=== PATIENT | female | born 1975 | race Caucasian/White ===

== ENCOUNTER 2016-10-08 23:49 | Emergency (ER) | payer OTHER ==
[~2016-10-08] VITALS: Ht 170.2 cm; Wt 138.3 kg
[~2016-10-08 23:49] MED LIST: AMOXICILLIN500 MG PO; AUGMENTIN 875 M1 TAB PO; AUGMENTIN 875-1 EACH PO; ENBREL50 MG/1 M1 SC; FEOSOL45 M1 PO; FOLIC ACID1 M1 PO; HYDROXYCHLOROQ200 M2 PO; HYDROXYZINE HCL25 M2 PO; MEDROL DOSEPAK1 PAC PO; METHOTREXATE2.5 M2 PO; NOVAPLUS V0.09 MG/Ac INH; PERCOCET 325 MG1 TA2 PO; PREDNISONE10 M2 PO; VITAFOL PO; VITAMIN D31000 UNI2 PO
[2016-10-09 00:55] VITALS: BP 138/76
[2016-10-09] MEDS ORDERED: PREDNISONE20 M1 PO (00:58)
[2016-10-09] MEDS ORDERED: NEXIUM40 M1 PO (00:58)
--- NOTE | 2016-10-09 01:21 | ED INFLUENZA/URI COMPLAINT ---
History of Present Illness General Chief Complaint: General Adult Stated Complaint: DIFF BREATHING C/O POST NASAL DRIP X'S COMP Source: patient Exam Limitations: no limitations Vital Signs & Intake/Output Vital Signs & Intake/Output Vital Signs Date Time Temp Pulse Resp B/P B/P Pulse O2 O2 Flow FiO2 Mean Ox Delivery Rate 10/09 0058 98 Room Air 10/09 0055 97.2 105 18 138/76 97 Room Air Allergies Coded Allergies: moxifloxacin (From Avelox) (UNKNOWN RXN 10/19/15) aspartame (From Nutrasweet Aspartame) (MIGRAINES 10/19/15) erythromycin base (STOMACH CRAMPS 10/19/15) itraconazole (From Sporanox) (MIGRAINE 10/19/15) meperidine (PARANOIA 10/19/15) Reconcile Medications Amoxicillin/Potassium Clav (Augmentin 875-125 Tablet) 1 EACH TABLET 1 TAB PO BID INFECTION Cholecalciferol (Vitamin D3) 1,000 UNIT TABLET 1 TAB PO DAILY SUPPLEMENT ( Reported) Esomeprazole (Nexium) 40 MG CAPSULE.DR 1 CAP PO DAILY GERD (Reported) Etanercept (Enbrel) 50 MG/1 ML PEN.INJCTR 1 INJ SC QW RA (Reported) Fe Fumarate/Nelson/E/FA/Multivit (Vitafol Caplet) 1 EACH TABLET 1 TAB PO DAILY SUPPLEMENT (Reported) Folic Acid 1 MG TABLET 1 TAB PO DAILY SUPPLEMENT (Reported) Hydroxychloroquine Sulfate 200 MG TABLET 1 TAB PO BID RA (Reported) Hydroxyzine HCl 25 MG TABLET 1-2 TAB PO Q6P PRN anxiety Iron,Carbonyl (Feosol) 45 MG TABLET 1 TAB PO DAILY SUPPLEMENT (Reported) Methotrexate 2.5 MG TABLET 8 TAB PO QW RA (Reported) Prednisone 10 MG TABLET 1 TAB PO DAILY RA (Reported) Prednisone 20 MG TABLET 1 TAB PO DAILY ASTHMATIC BRONCHITIS (Reported) Triage Note: PT TO ER C/C ONGOING SOB AND COUGH X 1 WEEKS; SEEN BY PCP FOR SAME, GIVEN RX FOR INHALER, AMOXICILLIN AND INCREASE IN DAILY PREDNISONE WITH SOME RELIEF OF SYMPTOMS. STATES SOB AND POST NASAL DRIP PERSISTS. PRODUCTIVE COUGH WITH YELLOW SPUTUM. DENIES CP Triage Nurses Notes Reviewed? yes : No Patient currently breastfeeds: No HPI: Patient presents for evaluation of shortness of breath and cough that began gradually 2 weeks ago. Patient was seen in a walk-in clinic 2 weeks ago and prescribed amoxicillin and an inhaler. She was then seen by her primary care physician about one week ago, chest x-ray obtained, and patient diagnosed with asthmatic bronchitis. Patient states that her symptoms had more or less resolved but then returned on Friday during the camping trip. Patient denies any fever or chest pain. She has been using the inhaler 4 times a day without much improvement. Patient typically takes a daily dose of prednisone 5 mg with this was increased due to this acute illness. She does have a scant amount of yellow phlegm with cough. She has also tried [id number]-alm-[id number] nonsedating antihistamines for the possibility of allergy symptoms without improvement ( patient has no known history of seasonal allergies). Past History Travel History Traveled to [place] past 21 day No Medical History Any Pertinent Medical History? see below for history Neurological: NONE EENT: migraine Cardiovascular: NONE Respiratory: NONE, obstructive sleep apnea Gastrointestinal: GERD, Eugene'S ESOPHAGUS Hepatic: NONE Renal: NONE Musculoskeletal: rheumatoid arthritis Psychiatric: anxiety, panic attack Endocrine: NONE Blood Disorders: NONE Cancer(s): NONE Tetanus Vaccine: 10/19/15 Surgical History Surgical History: none Psychosocial History Who do you live with Family Services at Home None What is your primary language Norwegian Tobacco Use: Current Daily Use Daily Tobacco Use Amount/Type: => 5 Cigarettes daily Family History Hx Contributory? No Review of Systems Review of Systems Constitutional: Reports: no symptoms. EENTM: Reports: no symptoms. Respiratory: Reports: see HPI. Cardiovascular: Reports: no symptoms. GI: Reports: no symptoms. Genitourinary: Reports: no symptoms. Musculoskeletal: Reports: no symptoms. Skin: Reports: no symptoms. Neurological/Psychological: Reports: no symptoms. Hematologic/Endocrine: Reports: no symptoms. Immunologic/Allergic: Reports: no symptoms. All Other Systems: Reviewed and Negative Physical Exam Physical Exam Ears, Nose, Throat: SEE BELOW Comments: Gen.: Well-nourished, well-developed, no acute respiratory distress. Head: Normocephalic, atraumatic. Eyes: Normal inspection bilaterally Ears: Normal inspection bilaterally Nose: Normal inspection Throat/mouth : Moist mucosa Neck: Supple, full range of motion, no goiter Heart: Regular rate and rhythm, no murmurs rubs or gallops Lungs: Clear to auscultation bilaterally with normal air entry Chest: Nontender Back: Normal range of motion Abdomen: Soft, nontender, nondistended, normal bowel sounds Extremities: Normal range of motion grossly, equal radial pulses, no cyanosis clubbing or edema Neurologic: Cranial nerves grossly intact, speech is clear Skin: warm and dry Psychiatric: Calm, cooperative, no apparent delusions or hallucinations Core Measures Severe Sepsis Present: No Septic Shock Present: No Progress Differential Diagnosis: PNEUMONIA, ASTHMATIC BRONCHITIS, SEASONAL ALLERGY SYMPTOMS, ANXIETY Plan of Care: Current Medications Sig/Kolby Start time Last Medication Dose Stop Time Status Admin Albuterol Sulfate 3 ML ONCE ONE 10/09 129 UNVr (Proventil) 10/09 130 Ipratropium Slinger 2.5 ML ONCE ONE 10/09 129 UNVr (Atrovent) 10/09 130 Methylprednisolone 125 MG ONCE ONE 10/09 129 UNVr (Solu Medrol) 10/09 130 Initial ED EKG: none Comments: I considered treating this patient with a DuoNeb along with Solu-Medrol. However given the good bilateral air entry lack of wheezing I did not feel this patient would derive much benefit. She might feel worse given the side effects. I will give her a dose of Solu-Medrol and asked that she increase her dose of prednisone over the next 2 days in order to settle down any seasonal allergy symptoms she is suffering an for more aggressive management of possible proximal spastic lung disease. I will have her follow up with her primary care physician for reevaluation and subsequent weaning of the prednisone back to her usual doses. Departure Departure Disposition: HOME OR SELF CARE Condition: Stable Clinical Impression Primary Impression: Asthmatic bronchitis Qualifiers: Asthma severity: mild intermittent Asthma complication type: uncomplicated Qualified Code: J45.20 - Mild intermittent asthma, uncomplicated Secondary Impressions: Seasonal allergies Qualifiers: Chronicity: chronic Allergic rhinitis trigger: unspecified Qualified Code: J30.2 - Other seasonal allergic rhinitis Referrals: GEORGE DOBBS,LYNN Molina (PCP/Family) Additional Instructions: Benadryl 50 mg every 6 hours as needed for seasonal allergy symptoms. Continue the Sudafed decongestant. Begin taking the Combivent inhaler every 6 hours and use the pro-air inhaler in between if necessary. Prednisone 60 mg beginning tomorrow each day for 2 days then return to your 20 mg daily dose. Follow-up with your primary care physician in 3 days for reevaluation. Return if any concerns or sudden worsening. Please try to quit smoking. Thank you for choosing the [facility] for your care. It was a pleasure to serve you today. Fly Sahu M.D. [facility] Departure Forms: Customer Survey General Discharge Information Prescriptions: Current Visit Scripts Ipratropium/Albuterol Sulfate (Combivent Respimat Inhal Junior) 1 INH INH Q6 PRN trouble breathing #1 INHAL Prednisone (Deltasone) 3 TAB PO DAILY #6 TAB BEGIN TOMORROW
[2016-10-09] MEDS ORDERED: DELTASONE20 MG PO (01:40)
[2016-10-09] MEDS ORDERED: COMBIVENT RESPIM4 GM INH (01:40)
== END 2016-10-09 02:13 ==
LOC: ERH 23:49
DX: J45.909 Unspecified asthma, uncomplicated (principal); J30.2 Other seasonal allergic rhinitis; Z72.0 Tobacco use
CPT/HCPCS: 1263; 96372; J2930

== ENCOUNTER 2016-10-12 15:12 | Emergency (ER) | payer OTHER ==
[~2016-10-12] VITALS: Ht 170.2 cm; Wt 138.3 kg
[~2016-10-12 15:12] MED LIST changes: +COMBIVENT RESPIM4 GM INH; +DELTASONE20 MG PO; +NEXIUM40 M1 PO; +PREDNISONE20 M1 PO
--- NOTE | 2016-10-12 16:11 | ED UPPER/LOWER EXTREMITY COMPL ---
History of Present Illness General Chief Complaint: Lower Extremity Problems Stated Complaint: SENT BY FOR ULTRASOUND FOR BOTH LEGS Source: patient Exam Limitations: no limitations Vital Signs & Intake/Output Vital Signs & Intake/Output Vital Signs Date Time Temp Pulse Resp B/P B/P Pulse O2 O2 Flow FiO2 Mean Ox Delivery Rate 10/12 1829 98.2 80 16 135/74 95 Room Air 10/12 1702 97 10/12 1628 Room Air 10/12 1517 96.9 107 15 158/99 95 Room Air Room Air ED Intake and Output 10/13 0000 10/12 1200 Intake Total Output Total Balance Patient 305 lb Weight Weight Reported by Patient Measurement Method Allergies Coded Allergies: etanercept (From ENBREL) (RASH 10/12/16) moxifloxacin (From Avelox) (UNKNOWN RXN 10/12/16) nystatin (RASHES 10/12/16) aspartame (From Nutrasweet Aspartame) (MIGRAINES 10/12/16) erythromycin base (STOMACH CRAMPS 10/12/16) itraconazole (From Sporanox) (MIGRAINE 10/12/16) meperidine (PARANOIA 10/12/16) Reconcile Medications Albuterol Sulfate (Proair Hfa) 90 MCG HFA.AER.AD 2 PUF INH AD PRN RESPIRATORY (Reported) Amoxicillin (Unknown Strength) TABLET (Unknown Dose) UNKNOWN (Reported) Cholecalciferol (Vitamin D3) (Vitamin D) 2,000 UNIT TABLET 1 TAB PO DAILY SUPPLEMENT (Reported) Cyclosporine (Restasis) 0.05 % DROPERETTE 1 GTT OPH BID DRY EYES- BIOTIN ( Reported) Esomeprazole (Nexium) 40 MG CAPSULE. 1 CAP PO DAILY GERD (Reported) Folic Acid 1 MG TABLET 1 TAB PO DAILY SUPPLEMENT (Reported) Furosemide (Lasix) 20 MG TABLET 1 TAB PO DAILY PRN LEG EDEMA Hydroxychloroquine Sulfate 200 MG TABLET 1 TAB PO BID RA (Reported) Hydroxyzine HCl 25 MG TABLET 1-2 TAB PO Q6P PRN anxiety Ipratropium/Albuterol Sulfate (Combivent Respimat Inhal [place]) 20 MCG-100 MCG/ ACTUATION MIST.INHAL 1 INH INH Q6 PRN trouble breathing Iron,Carbonyl (Feosol) 45 MG TABLET 1 TAB PO DAILY SUPPLEMENT (Reported) Prednisone 20 MG TABLET 1 TAB PO DAILY ASTHMATIC BRONCHITIS (Reported) Sodium Fluoride (Denta 5000 Plus) 1.1 % CREAM..G. 1 BRIA TOP BID TEETH ( Reported) Vitamin E Mixed (Vitamin E) (Unknown Strength) TABLET (Unknown Dose) PO DAILY SUPPLEMENT (Reported) Triage Note: PT SENT TO ED BY DR. VAZQUEZ FOR BILATERAL LOWER EXT EDEMA FOR THE LAST COUPLE OF DAYS. SENT FOR BILAT ULTRASOUND TO R/O DVT. +SOB, -CP. RECENTLY ON PREDNISONE FOR URI AND IS UNSURE IF IT'S RELATED. Triage Nurses Notes Reviewed? yes Onset: Gradual Duration: constant Timing: recent history Severity: moderate Severity Numbers: 5 : No Patient currently breastfeeds: No HPI: Patient is a 41-year-old with a past medical history of rheumatoid arthritis Awan's esophagus and hiatal hernia who presented to the emergency room 3 days ago for concerns of reactive airway disease and bronchitis were patient has been administered prednisone where she presents to the emergency room with a gradual onset of a 2 day history of bilateral lower extremity swelling, patient has associated symptoms of persisting productive cough and shortness of breath. Patient does state that she's had a chronic history of shortness of breath and which she is in every day smoker. Patient also states that she has been chronically on prednisone however due to recent ER evaluation her prednisone has significantly increased. Patient denies any fever chills chest pain and jaw pain nausea vomiting hemoptysis recent travel or recent surgery history of DVT or PE (EDOUARD COLEY) Past History Travel History Traveled to [place] past 21 day No Medical History Any Pertinent Medical History? see below for history Neurological: NONE EENT: migraine Cardiovascular: NONE Respiratory: NONE, obstructive sleep apnea Gastrointestinal: GERD, Awan'S ESOPHAGUS Hepatic: NONE Renal: NONE Musculoskeletal: rheumatoid arthritis Psychiatric: anxiety, panic attack Endocrine: NONE Blood Disorders: NONE Cancer(s): NONE Tetanus Vaccine: 10/19/15 Surgical History Surgical History: none Psychosocial History Who do you live with Family Services at Home None What is your primary language Yemeni Tobacco Use: Current Daily Use Daily Tobacco Use Amount/Type: => 5 Cigarettes daily ETOH Use: denies use Illicit Drug Use: denies illicit drug use Family History Hx Contributory? No (EDOUARD COLEY) Review of Systems Review of Systems Constitutional: Reports: no symptoms. EENTM: Reports: no symptoms. Respiratory: Reports: see HPI, cough, short of breath. Cardiovascular: Reports: see HPI, peripheral edema. Denies: chest pain. Gastrointestinal/Abdominal: Reports: no symptoms. Genitourinary: Reports: no symptoms. Musculoskeletal: Reports: no symptoms. Skin: Reports: no symptoms. Neurological/Psychological: Reports: no symptoms. Hematologic/Endocrine: Reports: no symptoms. Immunological: Reports: no symptoms. All Other Systems: Reviewed and Negative (EDOUARD COLEY) Physical Exam Physical Exam General Appearance: no apparent distress, obese Skin: intact, normal color, warm/dry Comments: HEENT: Normal EENT exam Neck: Supple, no lymphadenopathy, normal range of motion without pain or tenderness Back: Nontender, no CVA tenderness. Full range of motion Cardiovascular: Regular rate and rhythms no murmurs rubs or gallops, normal JVP Respiratory: Chest nontender. No respiratory distress.breath sounds clear to auscultation bilaterally Abdomen: Soft, nontender nondistended, no appreciable organomegaly. Normal bowel sounds. No ascites Extremity: +1 bilateral lower extremity pitting edema, no calf tenderness to palpation, normal and equal pulses. Neuro: Alert oriented x3, motor sensory normal, Skin: No appreciable rash on exposed skin, skin is warm and dry. Psych: Mood and affect is normal, memory and judgment is normal. (EDOUARD COLEY) Progress Differential Diagnosis: arterial insufficiency, cellulitis, CHF, compartment syndrome, contusion, dislocation, DVT, fracture, gout, septic arthritis, sprain, tendon injury Plan of Care: Orders Procedure Date/time Status HUMAN BETA HCG SCREEN 10/12 1699 Complete URINALYSIS 10/12 164 Complete TROPONIN LEVEL 10/12 164 Complete COMPREHENSIVE METABOLIC PANEL 10/12 164 Complete CBC WITHOUT DIFFERENTIAL 10/12 164 Complete B-TYPE NATRIURETIC PEP (BNP) 10/12 164 Complete Laboratory Tests 10/12/16 1705: Urine Color YEL, Urine Clarity CLEAR, Urine pH 6.0, Ur Specific [place] 1.010, Urine Protein NEG, Urine Ketones NEG, Urine Nitrite NEG, Urine Bilirubin NEG, Urine Urobilinogen 0.2, Ur Leukocyte Esterase NEG, Ur Microscopic SEDIMENT EXAMINED, Urine RBC RARE, Ur Epithelial Cells RARE, Urine Hemoglobin TRACE- INTACT, Urine Glucose NEG 10/12/16 1700: Anion Gap 10, Estimated GFR > 60, BUN/Creatinine Ratio 18.3, Glucose 85, Calcium 9.5, Total Bilirubin 0.4, AST 20, ALT 47, Alkaline Phosphatase 64, Troponin I < 0.01, Ndz-[id number]-Zwczeobpkmx Pept 82.6, Total Protein 6.7, Albumin 4.1, Globulin 2.6, Albumin/Globulin Ratio 1.6, Total Beta HCG NEGATIVE, CBC w Diff NO MAN DIFF REQ, RBC 4.77, MCV 90.9, MCH 30.0, RDW 14.8 H, MPV 6.6 L, Gran % 80.3 H, Lymphocytes % 13.3 L, Monocytes % 5.9, Eosinophils % 0.2, Basophils % 0.3, Absolute Granulocytes 9.7 H, Absolute Lymphocytes 1.6, Absolute Monocytes 0.7 H, Absolute Eosinophils 0, Absolute Basophils 0, PUBS MCHC 33.0 10/12/16 1646: Total Beta HCG Cancelled Patient currently is resting comfortable at bedside distress no respiratory distress oxygen saturation 98% lungs auscultation. Patient had an unremarkable chest x-ray blood work and ultrasounD. NO CONCERN OF CHF or DVT. There is no suspicion of pulmonary embolism No findings of nephrotic syndrome Patient was strongly advised to discontinue smoking and was given a short course of diuretic for concerns of dependent edema There is also suspicion of patient swelling due to long standing steroid use and patient recently was administered higher dose of steroids due to reactive airway disease from previous emergency room visit. (CAMACHO CASTELLANOS,EDOUARD) Diagnostic Imaging: Viewed by Me: Radiology Read, Ultrasound. CXR Impression: no acute abnormality Comments: PATIENT: JOÃO WIGGINS PRESENT AGE: 41 PATIENT ACCOUNT NO: [id number] : 75 LOCATION: [facility] ORDERING PHYSICIAN: BEVERLY ZHENG MD SERVICE DATE: 10/12/16 EXAM TYPE: US - US-EXT BILAT VENOUS DOPPLER EXAMINATION: US TRIPLEX OF LOWER EXTREMITIES, BILATERAL CLINICAL INFORMATION: Lower extremity edema COMPARISON: None TECHNIQUE: Color-flow triplex imaging with spectral analysis and compression Doppler were performed on the lower extremities. FINDINGS: Respiratory variation, normal compression and augmented flow are noted throughout the lower extremities. The visualized common femoral vein, superficial femoral vein, profunda femoral vein, popliteal vein and midcalf peroneal and posterior tibial venous segments show no evidence of deep venous thrombosis. There is no Downs's cyst. IMPRESSION: Normal triplex scan without evidence of deep venous thrombosis involving the lower extremities. DICTATED BY: BERNADINE SIMON MD DATE/TIME DICTATED:10/12/161747 RN HYPERBARIC:WILFRIDO PATIENT: JOÃO WIGGINS PRESENT AGE: 41 PATIENT ACCOUNT NO: [id number] : 75 LOCATION: [facility] ORDERING PHYSICIAN: EDOUARD CASTELLANOS SERVICE DATE: 10/12/16 EXAM TYPE: RAD - XRY-CHEST XRAY, PA AND LATERAL EXAMINATION: XR CHEST CLINICAL INFORMATION: Shortness of COMPARISON: 11/02/2015 chest x-ray TECHNIQUE: 2 views of the chest were obtained. FINDINGS: Normal cardiomediastinal silhouette. The lungs are clear. The pulmonary vascularity is within normal limits. The costophrenic angles are sharp. No pleural effusions or pneumothorax. The visualized bony thorax is unremarkable. IMPRESSION: No acute cardiopulmonary findings. DICTATED BY: BERNADINE SIMON MD DATE/TIME DICTATED:10/12/161743 RN HYPERBARIC:WILFRIDO DATE/TIME TRANSCRIBED:10/12/16 (CAMACHO CASTELLANOS,EDOUARD) Departure Departure Disposition: HOME OR SELF CARE Condition: Stable Clinical Impression Primary Impression: Leg edema Referrals: GEORGE DOBBS,LYNN Molina (PCP/Family) Additional Instructions: As discussed continue home medications as directed. Please discontinue smoking. Begin the prescription of Lasix as directed for swelling. Prescription is waiting at [facility]. If symptoms worsen return to emergency room. If no better on Friday follow up with your primary care doctor Departure Forms: Customer Survey General Discharge Information Prescriptions: Current Visit Scripts Furosemide (Lasix) 1 TAB PO DAILY PRN LEG EDEMA #4 TAB (EDOUARD COLEY) PA/BOTTLE CASER Co-Sign Statement Statement: ED Attending supervision documentation- [] I saw and evaluated the patient. I have also reviewed all the pertinent lab results and diagnostic results. I agree with the findings and the plan of care as documented in the PA's/BOTTLE CASER's documentation. [X] I have reviewed the ED Record and agree with the PA's/BOTTLE CASER's documentation. [] Additions or exceptions (if any) to the PAs/BOTTLE CASER's note and plan are summarized below: [] (NORM DOBBS,BEVERLY Bernard)
[2016-10-12] MEDS ORDERED: VITAMIN D2000 UNI1 PO (17:06)
[2016-10-12] MEDS ORDERED: AMOXICILLIN875 M1 (17:14)
[2016-10-12] MEDS ORDERED: DENTA 5000 PLUS51 GM TOP (17:15)
[2016-10-12] MEDS ORDERED: RESTASIS1 EACH OPH (17:16)
[2016-10-12] MEDS ORDERED: PROAIR HFA8.5 GM INH (17:16)
[2016-10-12 17:17] LABS: ABSOLUTE BASOPHIL COUNT 0 /CUMM (0.0-0.2); ABSOLUTE EOSINOPHIL COUNT 0 /CUMM (0.0-0.7); ABSOLUTE GRANULOCYTE CT 9.7 /CUMM (1.4-6.5); ABSOLUTE LYMPH COUNT 1.6 /CUMM (1.2-3.4); ABSOLUTE MONOCYTE COUNT 0.7 /CUMM (0.10-0.60); BASOPHIL % 0.3 % (0.0-2.0); EOSINOPHIL % 0.2 % (0-5); GRANULOCYTE % 80.3 % (42.2-75.2); HEMATOCRIT 43.3 % (37-47); MEAN CORPUSCULAR VOLUME 90.9 FL (81.0-99.0); MEAN PLATELET VOLUME 6.6 FL (7.4-10.4); PLATELET COUNT 355 /CUMM (130-400); RBC DISTRIBUTION WIDTH 14.8 % (11.5-14.5); RED BLOOD CELL CT 4.77 /CUMM (4.20-5.40); WHITE BLOOD CELL COUNT 12.1 /CUMM (4.8-10.8)
[2016-10-12] MEDS ORDERED: VITAMIN E400 UNI2 PO (17:18)
--- NOTE | 2016-10-12 17:49 | RADIOLOGY REPORT ---
EXAMINATION: XR CHEST CLINICAL INFORMATION: Shortness of COMPARISON: 11/02/2015 chest x-ray TECHNIQUE: 2 views of the chest were obtained. FINDINGS: Normal cardiomediastinal silhouette. The lungs are clear. The pulmonary vascularity is within normal limits. The costophrenic angles are sharp. No pleural effusions or pneumothorax. The visualized bony thorax is unremarkable. IMPRESSION: No acute cardiopulmonary findings.
--- NOTE | 2016-10-12 18:00 | ULTRASOUND REPORT ---
EXAMINATION: US TRIPLEX OF LOWER EXTREMITIES, BILATERAL CLINICAL INFORMATION: Lower extremity edema COMPARISON: None TECHNIQUE: Color-flow triplex imaging with spectral analysis and compression Doppler were performed on the lower extremities. FINDINGS: Respiratory variation, normal compression and augmented flow are noted throughout the lower extremities. The visualized common femoral vein, superficial femoral vein, profunda femoral vein, popliteal vein and midcalf peroneal and posterior tibial venous segments show no evidence of deep venous thrombosis. There is no Downs's cyst. IMPRESSION: Normal triplex scan without evidence of deep venous thrombosis involving the lower extremities.
[2016-10-12] MEDS ORDERED: LASIX20 M1 PO (18:13)
[2016-10-12 18:29] VITALS: BP 135/74
[2016-10-16] MEDS ORDERED: LASIX40 M1 PO (02:04)
== END 2016-10-12 18:30 ==
LOC: ERH 15:12
PROVIDERS: Physician Assistant
DX: R60.9 Edema, unspecified (principal)
CPT/HCPCS: 1263; 81001; 93970